=== PATIENT | male | born 1960 | race Caucasian/White ===

== ENCOUNTER 2025-08-04 09:53 | Outpatient (AMB) | payer MEDICARE, SELFPAY ==
--- NOTE | 2025-08-04 09:56 | A.OFFPC_ITS ---
Vital Signs 08/04/25 09:58 Height 6 ft 1 in Weight 268 lb 8 oz BMI 35.4 BP 128/88 Blood Pressure Location Rt brachial Position Sitting Pulse 65 Pulse Source Pulse Oximeter Temp 97.2 F Temp Source Temporal Artery Scan Pulse Oximetry (%) 98 Oxygen Delivery Method Room Air Intake Visit Reasons: TOWERMAN review of medication Allergies No Known Allergies Allergy (Verified 08/04/25 09:59) Medication List - Last Reconciled 08/04/25 by Philip Sanchez MD atorvastatin (Lipitor) 20 mg PO DAILY coenzyme Q10 (Co Q-10) 100 mg PO DAILY 90 days Tobacco use date assessed: 08/04/25 Fall risk assessment: No Falls in past year Last assessed Fall Risk: 08/04/25 Dental Screening Dental Screen Date: 08/04/25 Did you have a dental visit in the last 12 months?: Yes Did you have a dental problem in the last 6 months where you did not have access to dental care?: No Was dental information given to patient?: Patient has dentist HPI TOWERMAN review of medication HPI Details New patient Prior PCP: Dr Gannon Last office visit/CPE: August 2024, CPE early 2024 Acute issue(s): Prostate cancer Urology Dr Jenkins Thyroid nodules Renal Cysts U/S Urology Dr Jenkins PMHx: Renal Cysts, Prostate cancer, thyroid nodule, IBS, GERD, HLD, Vertigo, ED, PSVT s/p ablation, sleep apnea SurgHx: Ablation for SVT. SocHx: Nonsmoker PFSH Medical History (Updated 08/04/25 @ 11:03 by Philip Sancehz MD) Prostate cancer Vertigo IBS (irritable bowel syndrome) GERD (gastroesophageal reflux disease) Thyroid disease Surgical History (Updated 08/04/25 @ 10:34 by Jay Canada) H/O cardiac ablation History of colonoscopy (2022) Hx of cholecystectomy Family History (Updated 08/04/25 @ 10:02 by Olya Zapata CMA) Brother Stomach cancer Social History (Updated 08/04/25 @ 10:00 by Olya Zapata CMA) Household Members: Significant Other Housing: House Alcohol intake: never Patient Tobacco Use Status: Never used Tobacco e-Cigarette/Vaping Use: Never Used Substance Use Type: Marijuana service: No Current occupational status: retired Cognitive needs: No Hearing needs: No Vision needs: Yes Questionnaire PHQ-9 Over the last 2 weeks, how often have you been bothered by any of the following problems? 1. Little interest or pleasure in doing things: not at all 2. Feeling down, depressed, or hopeless: not at all 3. Trouble falling or staying asleep, or sleeping too much: several days 4. Feeling tired or having little energy: not at all 5. Poor appetite or overeating: several days 6. Feeling bad about yourself - or that you are a failure or have let yourself or your family down: not at all 7. Trouble concentrating on things, such as reading the newspaper or watching television: not at all 8. Moving or speaking so slowly that other people could have noticed. Or the opposite - being so fidgety or restless that you have been moving around a lot more than usual: not at all 9. Thoughts that you would be better off or of hurting yourself in some way: not at all Total score: 2 Depression Screening Interpretation: Positive Depression Screening Done: Yes 70751 - PHQ-9 Billing: Yes Source: Developed by Drs. Reggie Perry, Breann Martin, Fab Pham and colleagues, with an educational hugo from [employer]. Thrive Questionnaire Date Thrive assessed: 08/04/25 I am a: Patient What is your living situation today?: I have a steady place to live Within the past 12 months, did the food you bought not last and you didn't have the money to get more?: Never true Within the past 12 months, did you worry whether your food would run out before you got money to buy more?: Never true Do you have trouble paying for medicines?: No Do you have trouble getting transportation to medical appointments?: No Do you have trouble paying your heating and electricity bill?: No Do you have trouble taking care of your child, family member or friend?: No Do you have trouble with day-to-day activities such as bathing, preparing meals, shopping, managing finances, etc.?: No Are you currently unemployed and looking for a job?: No Are you interested in more education?: No Please select the resources that you would like help with: None Currently or been in a relationship where the following occur: No concerns reported THRIVE Score: 0 AUDIT C Alcohol Use Questionnaire (AUDIT-C) 1. How often do you have a drink containing alcohol?: Never 3. How often do you have six or more drinks on one occasion?: Never Total Score: 0 MADELINE-7 AMB Questionnaire MADELINE-7 Date MADELINE - 7 assessed: 08/04/25 Feeling nervous, anxious, or on edge: 0 = Not at all Not being able to stop or control worryin = Not at all Worrying too much about different things: 0 = Not at all Trouble relaxin = Not at all Being so restless that it is hard to sit still: 0 = Not at all Becoming easily annoyed or irritable: 0 = Not at all Feeling afraid as if something awful might happen: 0 = Not at all Total MADELINE-7 score (0-4 normal; 5-9 mild; 10-14 moderate; 15-21 severe): 0 Source: Developed by Drs. Reggie Perry, Breann Martin, Fab Pham and colleagues, with an educational hugo from [employer]. MADELINE-7 Assessment Billing MADELINE-7 Assessment Tool: MADELINE-7 Assessment 76800 Review of Systems Const Denies chills, Denies fatigue, Denies fever(s), Denies headache(s) and Denies weakness ENT Denies dizziness and Denies headache(s) Card Denies chest pain, Denies lightheadedness, Denies dyspnea and Denies other (Palpitations) Resp Denies cough, Denies dyspnea, Denies wheezing and Denies other ( shortness of breath) Musc Denies numbness and Denies tingling Neuro Denies dizziness, Denies headache(s), Denies numbness, Denies tingling, Denies paresthesias and Denies weakness Psych Denies anxiety and Denies depression Endo Denies fatigue Aller/Immun Denies wheezing Physical exam (Primary Care) Vital Signs: Last Vital Signs Temp 97.2 F 08/04/25 09:58 Pulse 65 08/04/25 09:58 BP 128/88 08/04/25 09:58 Pulse Ox 98 08/04/25 09:58 Oxygen Delivery Method Room Air 08/04/25 09:58 BMI result Body Mass Index 35.4 Tobacco/Smoking Status: Tobacco use Status Tobacco use date assessed 08/04/25 08/04/25 10:06 Patient Tobacco Use Status Never used Tobacco 08/04/25 10:06 e-Cigarette/Vaping Use Never Used 08/04/25 10:06 PHQ-9: PHQ-9 Score PHQ-9: Total score 2 08/04/25 10:31 Depression Screening Interpretation: Positive Thrive Assessment: Date of Thrive Assessment Date Thrive assessed 08/04/25 08/04/25 10:06 Currently or been in a relationship where the following occur: No concerns reported Const General: no acute distress and well developed Nutritional Appearance: well nourished Orientation/consciousness: patient oriented x3 HENMT Head: Yes normocephalic and Yes atraumatic Eyes General: appearance normal, both eyes and all related structures Pupils: Equal, round and reactive pupils present EOM: EOMs intact bilaterally Resp Effort & Inspection: normal respiratory effort Auscultation: clear to auscultation bilaterally Cardio Rate: regular rate Rhythm: regular rhythm Heart sounds: S1 normal heart sound present, S2 normal heart sound present, no gallops, no murmurs and no rubs Neuro General: patient oriented x3 and gait normal Cranial nerves: Yes Equal, round and reactive pupils present Psych Affect: normal affect Coding Level of Care Code New Pt Level 3 (96843) Diagnoses IBS (irritable bowel syndrome) K58.9 Prostate cancer C61 Hyperlipidemia E78.5 H/O cardiac ablation Z98.890 Vertigo R42 GERD (gastroesophageal reflux disease) K21.9 Sleep apnea G47.30 Obesity E66.9 Thyroid nodule E04.1 Laboratory exam ordered as part of routine general medical examination Z00.00 Additional Codes MADELINE-7 Assessment Billing - MADELINE-7 Assessment Tool: MADELINE-7 Assessment 39258 ([id number]) PHQ-9 - 96888 - PHQ-9 Billing: Yes ([id number]) Assessment & Plan Assessment & Plan (1) IBS (irritable bowel syndrome): Code(s): K58.9 - Irritable bowel syndrome, unspecified Category: Medical Plan: will follow Hydrate well (2) Prostate cancer: Code(s): C61 - Malignant neoplasm of prostate Category: Medical Plan: Followed by Dr. Thacker Stable Follow-up as recommended (3) Hyperlipidemia: Code(s): E78.5 - Hyperlipidemia, unspecified Category: Medical Plan: He is on atorvastatin He notices some achiness with this medication He can trial Co Q10 (4) H/O cardiac ablation: Code(s): Z98.890 - Other specified postprocedural states Category: Surgical Plan: History of SVT now s/p cardiac ablation Stable Will monitor Treat sleep apnea-see below (5) Vertigo: Code(s): R42 - Dizziness and giddiness Category: Medical Plan: Stable Hydrate will (6) GERD (gastroesophageal reflux disease): Code(s): K21.9 - Gastro-esophageal reflux disease without esophagitis Category: Medical Plan: He will let know he is still having issues with this (7) Sleep apnea: Code(s): G47.30 - Sleep apnea, unspecified Category: Medical Plan: Untreated sleep apnea Referred back to sleep medicine (8) Obesity: Code(s): E66.9 - Obesity, unspecified Category: Medical Plan: Patient would like to try a GLP 1 medication Indication is obesity with sleep apnea. Also advised he call his insurance to ensure they cover (9) Thyroid nodule: Code(s): E04.1 - Nontoxic single thyroid nodule Category: Medical Plan: Recent ultrasound in August 2024 showed stable thyroid nodules of right left lobes. Recommends follow-up in late 2025 (10) Laboratory exam ordered as part of routine general medical examination: Code(s): Z00.00 - Encounter for general adult medical examination without abnormal findings Category: Medical Plan: Check labs Orders: Referrals Sleep Medicine Referral G47.30 - Sleep apnea, unspecified Medications: New coenzyme Q10 (Co Q-10) 100 mg PO DAILY 90 caps 2RF 90 days tirzepatide (Mounjaro) for 4 weeks 2.5 mg (0.5 mL) subcut QWEEK 28 days 2 mL 2RF E66.9 - Obesity, unspecified, G47.30 - Sleep apnea, unspecified tirzepatide (Mounjaro) for 4 weeks 2.5 mg (0.5 mL) subcut QWEEK 2 mL 2RF 28 days E66.9 - Obesity, unspecified, G47.30 - Sleep apnea, unspecified
[2025-08-04 09:58] VITALS: BP 128/88; PULSE 65; TEMP 36.2; O2SAT 98; BMI 35.4
== END 2025-08-04 10:58 | disposition home or self-care (01) ==
LOC: HO.HMCFM 09:54
PROVIDERS: PCP Family Medicine; Visit Provider Family Medicine
DX: K58.9 Irritable bowel syndrome, unspecified (principal); C61 Malignant neoplasm of prostate; E66.9 Obesity, unspecified; Z68.35 Body mass index [BMI] 35.0-35.9, adult; E78.5 Hyperlipidemia, unspecified; Z98.890 Other specified postprocedural states; R42 Dizziness and giddiness; K21.9 Gastro-esophageal reflux disease without esophagitis; G47.30 Sleep apnea, unspecified; E04.1 Nontoxic single thyroid nodule

== ENCOUNTER → 2025-08-04 09:53 | Outpatient (BNVA) | payer MEDICARE, MEDICAID, SELFPAY | PROVIDERS: PCP Family Medicine; Visit Provider Family Medicine | DX: Z00.00 Encounter for general adult medical examination without abnormal findings (principal); K58.9 Irritable bowel syndrome, unspecified; C61 Malignant neoplasm of prostate; E78.5 Hyperlipidemia, unspecified; R42 Dizziness and giddiness; K21.9 Gastro-esophageal reflux disease without esophagitis; G47.30 Sleep apnea, unspecified; E66.9 Obesity, unspecified; E04.1 Nontoxic single thyroid nodule; Z13.31 Encounter for screening for depression; Z13.39 Encounter for screening examination for other mental health and behavioral disorders | CPT/HCPCS: 96127; 99202 ==

== ENCOUNTER 2025-08-12 07:51 | Outpatient (REF) | payer MEDICARE, SELFPAY ==
[2025-08-12 10:58] LABS: MANUAL DIFF FLAG NO
[2025-08-12 11:02] LABS: Hematocrit 44.8 % (42.0-52.0); Hemoglobin 14.9 g/dl (14.0-18.0); Imm Gran Abs Auto 0.01 X10*3/uL (0.00-0.03); Imm Gran Pct Auto 0.2 % (0.0-0.4); Lymphocytes Absolute Auto 2.0 X10*3/uL (1.2-4.9); Mean Corpuscular HGB Conc 33.3 g/dl (31.0-36.0); Mean Corpuscular Hemoglobin 31.0 pg (27.0-33.0); Mean Corpuscular Volume 93.1 fL (80.0-98.0); NRBC Abs Auto 0.000 X10*3/uL (0.0-0.012); NRBC Pct Auto 0.0 /100WBC (0.0-0.2); Platelet Count 140 X10*3/uL (160-400); Red Blood Count 4.81 X10*6/uL (4.60-5.80); White Blood Count 5.6 X10*3/uL (4.8-10.8)
[2025-08-12 11:27] LABS: Appearance Urine Clear; Glucose Urine UA Negative (Negative); PH 6.5 (5.0-9.0); Specific Gravity - Urine 1.025 (1.005-1.025); UMIC TRIGGER UACC YES
[2025-08-12 11:35] LABS: Alanine Aminotransferase 34 U/L (0-40); Albumin Level 4.6 g/dL (3.5-5.0); Alkaline Phosphatase 55 U/L (39-117); Anion Gap 10 (12-20); Aspartate Amino Transferase 30 U/L (5-37); Blood Urea Nitrogen 18 mg/dL (9-16); Calcium 9.1 mg/dL (8.4-10.2); Carbon Dioxide 30 mmol/L (22-29); Chloride 107 mmol/L (96-108); Cholesterol 136 mg/dL (<200); Estimated Glomerular Filt Rate > 60; HDL Cholesterol 67 mg/dL (>40); Potassium 4.0 mmol/L (3.3-5.1); Sodium 143 mmol/L (135-145); Total Protein 6.8 g/dL (6.5-8.0); Triglycerides 47 mg/dL (<150)
[2025-08-12 11:57] LABS: Microalbum/Creatinine Ratio Ur 21.2 ug/mg cr (<30)
== END 2025-08-12 07:52 ==
LOC: HO.WFDLDS 07:51
PROVIDERS: Visit Provider Family Medicine
DX: Z00.00 Encounter for general adult medical examination without abnormal findings (principal); I10 Essential (primary) hypertension
CPT/HCPCS: 36415; 80053; 80061; 81001; 82043; 82570; 84443; 85025